=== PATIENT | male | born 1985 | race Two or more races ===

== ENCOUNTER 2024-03-26 21:46 | Emergency (ER) | payer OTHER, SELFPAY ==
[2024-03-26 21:57] VITALS: BP 142/86; PULSE 93; RESP 18; TEMP 36.4; O2SAT 100; BMI 33.4
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
[2024-03-27] MEDS: Ketorolac Tromethamine 60 MG/2 ML VIAL IM (00:36)
[2024-03-27] MEDS: Cyclobenzaprine HCl 10 MG TABLET PO (00:36)
[2024-03-27 00:40] VITALS: BP 142/86; PULSE 93; RESP 18; TEMP 36.4; O2SAT 100
== END 2024-03-27 00:41 | disposition home or self-care (01) ==
PROVIDERS: Emergency Provider Emergency Medicine
DX: M54.50 Low back pain, unspecified (principal); M54.2 Cervicalgia
CPT/HCPCS: 96372; 99283; 99284; J1885